=== PATIENT | female | born 2000 | race Two or more races ===

== ENCOUNTER 2020-07-05 13:00 | Emergency (ER) | payer MEDICAID ==
[~2020-07-05] VITALS: Ht 165.1 cm; Wt 59.0 kg
--- NOTE | 2020-07-05 13:05 | Emergency Room Report ---
History of Present Illness General Chief Complaint: Lower Extremity Injury Source: EMS Present Illness HPI Disclaimer: Please note that this report is being documented using [employer] technology. This can lead to erroneous entry secondary to incorrect interpretation by the dictating instrument. HPI: 19-year-old female presents for evaluation of left ankle injury. Missed the last step causing a twisting motion of the ankle falling to the floor on the left side. Denies head injury or loss conscious. Noted deformity and swelling over the ankle. Called EMS who placed her in a temporary immobilizer. Applied ice. Denies numbness or tingling. Denies pain in the midfoot or knee. No other injury reported. PMH: Denies PSH: Denies Allergies: Denies Social Hx: Denies Allergies: Coded Allergies: No Known Allergies (Unverified , 07/05/20) COVID-19 Screening Contact w/high risk pt: No Experienced COVID-19 symptoms?: No COVID-19 Testing performed ASSAYER HELPER: No Nursing Documentation-PMH Past Medical History: No Stated History Review of Systems All Other Systems: negative except mentioned in HPI Physical Exam Vital Signs Date Time Temp Pulse Resp B/P (MAP) Pulse Ox O2 Delivery O2 Flow Rate FiO2 07/05/20 12:54 98.2 81 20 136/66 (89) 98 Room Air General: Awake and alert, no acute distress HEENT: NC/AT. EOMI. Resp: Normal work of breathing Skin: Intact. No abrasions, laceration or rash over the exposed skin MSK: Normal tone and bulk. Moving all extremities. Swelling and tenderness palpation over the lateral malleolus left ankle. No midfoot tenderness. Able to move all toes. Brisk capillary refill. Palpable PT and DP pulse. No tenderness over the medial malleolus. Neuro: Awake and alert. Mentating appropriately Medical Decision Making Diagnostic Impression: Primary Impression: Ankle sprain ER Course 19-year-old female presents after a fall complaining of left ankle pain. No osseous injury identified on x-ray. Likely a moderate sprain. Patient placed in [employer] and provided with crutches. We will continue analgesics and RICE therapy at home. Discussed reasons to return to the ER. She understands and agrees with this treatment plan. Other X-Ray Diagnostic Results Other X-Ray Diagnostic Results : X-Ray ordered: Left ankle # of Views/Limited Vs Complete: 3 View Indication: Pain EP Interpretation: Yes Interpretation: no dislocation, no fractures, other - Soft tissue swelling noted Impression: Other - Soft tissue swelling without obvious fracture or dislocation Electronically Signed by: Electronically signed by Dr. John Dupont MD Last Vital Signs Date Time Temp Pulse Resp B/P (MAP) Pulse Ox O2 Delivery O2 Flow Rate FiO2 07/05/20 12:54 98.2 81 20 136/66 (89) 98 Room Air Disposition: HOME, SELF-CARE Condition: Stable Scripts Hydrocodone/Acetaminophen 5-325* (HYDROCODONE/ACETAMINOPHEN 5-325*) 1 Each Tablet 1 TAB ORAL Q6H PRN for For Pain, #6 TAB 0 Refills Prov: John Dupont MD 07/05/20 Ibuprofen* (MOTRIN*) 600 Mg Tablet 600 MG ORAL Q6H PRN for For Pain, #30 TAB 0 Refills Prov: John Dupont MD 07/05/20 John Dupont MD Jul 05, 2020 13:05
[2020-07-05] MEDS ORDERED: Morphine Sulfate 2mg/ml Inj(IV/IM USE ONLY) IM ONE (13:15)
[2020-07-05] MEDS ORDERED: IBUPROFEN600 M1 ORAL (13:26)
[2020-07-05] MEDS ORDERED: HYDROCODON-ACE1 EA15 ORAL (13:26)
[2020-07-05 14:01] VITALS: BP 138/69
--- NOTE | 2020-07-05 16:14 | Diagnostic Imaging Report ---
Indication: Pain, status post slip and fall Technique: 3 views of the left ankle Comparison: none Findings: No acute fracture. No dislocation. The joint spaces are preserved Impression: Negative
== END 2020-07-05 14:30 | disposition home or self-care (01) ==
LOC: EDBD 13:00 → EMR 13:20
DX: S93.402A Sprain of unspecified ligament of left ankle, initial encounter (principal); X50.1XXA Overexertion from prolonged static or awkward postures, initial encounter; Y92.9 Unspecified place or not applicable
CPT/HCPCS: 73610; 96372; J2270; Z7502; 99283